=== PATIENT | male | born 1965 | race Caucasian/White ===

== ENCOUNTER 2023-06-19 06:12 | Day surgery (SDC) | payer BC, SELFPAY ==
[2023-06-12 07:26] VITALS: BMI 27.7
[2023-06-12 09:07] LABS: Mean Corp Hgb Conc. 34.8 g/dL (33.0-37.0); Mean Corpuscular Hgb 30.6 pg (27.0-31.0); Mean Platelet Volume 10.4 fL (7.4-10.4); Platelet Count 210 10^3/uL (130-400); Red Blood Cell Count 5.23 10^6/uL (4.70-6.10); Red Cell Dist. Width 12.3 % (11.5-14.5); White Blood Cell Count 6.5 10^3/uL (4.8-10.8)
[2023-06-12 09:39] LABS: Blood Urea Nitrogen 18 mg/dl (9-20); Calcium 9.8 mg/dl (8.4-10.2); Carbon Dioxide 29 mmol/L (22-30); Chloride 100 mmol/L (98-107); Estimated Creatinine Clearance 103 ml/min; Glucose 90 mg/dl (70-99); Potassium 5.5 mmol/L (3.5-5.1); Sodium 140 mmol/L (135-145); eGFR > 60.00
--- NOTE | 2023-06-12 12:02 | PTCARENOTE ---
Taisha at 's office was notified of K+ 5.5 collected today.
--- NOTE | 2023-06-18 12:31 | SUR.OPER ---
Patients potassium 5.5 from labs collected 06/11-reviewed by John Jean- to be repeated bedside
[2023-06-19] VITALS (9 sets, daily range): BP systolic 124–158; BP diastolic 73–90; BMI 27.7
[2023-06-19] MEDS: NORMOSOL-R 1000 IV (06:28)
[2023-06-19] MEDS: TYLENOL 1000 MG PO (06:56)
[2023-06-19 07:40] LABS: Potassium 4.4 mmol/L (3.5-5.1)
== END 2023-06-19 10:47 | disposition home or self-care (01) ==
LOC: SDS 06:12
PROVIDERS: Anesthesiology; ATTENDING PHYSICIAN Otolaryngology; FAMILY PHYSICIAN Family Medicine
DX: J34.2 Deviated nasal septum (principal); J34.3 Hypertrophy of nasal turbinates; J31.0 Chronic rhinitis; J34.89 Other specified disorders of nose and nasal sinuses; R09.82 Postnasal drip
CPT/HCPCS: 30520; 30140; 36415; 80048; 84132; 85027; 93005

== ENCOUNTER → 2023-10-07 11:48 | Outpatient (REF) | payer BC, SELFPAY ==
[2023-10-07 12:24] LABS: Ionized Calcium 1.19 mMOL/L (1.15-1.33)
[2023-10-07 12:26] LABS: % Basophils 0.3 % (0-2); % Eosinophils 0.6 % (0-6); % Immature Granulocytes 0.4 % (0-0.5); % Lymphocytes 27.6 % (20.5-51.1); % Monocytes 8.3 % (1.7-9.3); % Neutrophils 62.8 % (42.2-75.2); Absolute Lymphocytes 1.9 10^3/uL (1.2-3.4); Absolute Monocytes 0.6 10^3/uL (0.1-0.6); Absolute Neutrophils 4.3 10^3/uL (1.4-6.5); Hematocrit 41.9 % (39.0-52.0); Hemoglobin 15.1 g/dL (13.0-18.0); Mean Corpuscular Hgb 30.7 pg (27.0-31.0); Mean Corpuscular Volume 85.2 fL (80.0-94.0); Mean Platelet Volume 10.1 fL (7.4-10.4); Nucleated Red Blood Cells % 0 % (-); Platelet Count 175 10^3/uL (130-400); Red Blood Cell Count 4.92 10^6/uL (4.70-6.10); Red Cell Dist. Width 12.3 % (11.5-14.5); White Blood Cell Count 6.8 10^3/uL (4.8-10.8)
[2023-10-07 13:28] LABS: ALT (SGPT) 24 U/L (0-50); AST (SGOT) 23 U/L (17-59); Albumin 4.6 g/dl (3.5-5.0); Alkaline Phosphatase 77 U/L (38-126); Blood Urea Nitrogen 17 mg/dl (9-20); Calcium 9.5 mg/dl (8.4-10.2); Carbon Dioxide 28 mmol/L (22-30); Chloride 104 mmol/L (98-107); Glucose 94 mg/dl (70-99); HDL Cholesterol 54 mg/dl; LDL Cholesterol, Calculated 106 mg/dl; Potassium 4.6 mmol/L (3.5-5.1); Sodium 139 mmol/L (135-145); Total Bilirubin 0.8 mg/dl (0.2-1.3); Total Cholesterol 172 mg/dl (50-199); Total Protein 6.9 g/dl (6.3-8.2); Triglyceride 62 mg/dl (10-149); Very Low Density Lipoprotein 12 mg/dl (0-30); eGFR > 60.00
[2023-10-07 14:25] LABS: PSA, Total - Screen 1.29 ng/ml (0.0-4.0); TSH Reflex To Free T4 0.98 uIU/ml (0.47-4.68)
[2023-10-08 16:14] LABS: Intact PTH 95.8 pg/ml (13.6-85.8)
== END ==
LOC: REG 11:48
PROVIDERS: ATTENDING PHYSICIAN Family Medicine
DX: I48.91 Unspecified atrial fibrillation (principal); Z12.5 Encounter for screening for malignant neoplasm of prostate; Z13.228 Encounter for screening for other metabolic disorders; Z13.29 Encounter for screening for other suspected endocrine disorder; Z13.220 Encounter for screening for lipoid disorders; Z13.0 Encounter for screening for diseases of the blood and blood-forming organs and certain disorders involving the immune mechanism; E83.52 Hypercalcemia
CPT/HCPCS: 36415; 80053; 80061; 82330; 83970; 84443; 85025; G0103